=== PATIENT | male | born 1935 | race Caucasian/White ===

== ENCOUNTER 2018-01-25 08:24 | Day surgery (SDC) | payer MEDICARE ==
[~2018-01-25 08:24] MED LIST: CEFAZOLIN 2 Gram 2 GM/50 ML BAG IVPB ONE; CELECOXIB 100 MG CAPSULE PO ONE; FAMOTIDINE 20MG TABLET PO ONE; MECLIZINE 25 MG TABLET PO ONE; METOCLOPRAMIDE 10 MG TABLET PO ONE; VANCOMYCIN HCL 1,000 MG in DEXTROSE 5 % IN WATER 250 ML IVPB ONE
[2018-01-25] MEDS ORDERED: ROPIVACAINE HCL (NAROPIN) /PF 5MG/ML 20ML VIAL IV ONE (08:25)
[2018-01-25] MEDS ORDERED: TRANEXAMIC ACID 1,000 MG/10 ML ML IV ONE (08:25)
[2018-01-25] MEDS ORDERED: MIDAZOLAM HCL 2MG/2ML VIAL IV ONE (08:25)
[2018-01-25] MEDS ORDERED: EPHEDRINE SULFATE 50 MG/ML ML IV ONE (08:25)
[2018-01-25] MEDS ORDERED: PROPOFOL 10 MG/ML VIAL IV ONE (08:25)
[2018-01-25] MEDS ORDERED: DEXAMETHASONE 4 MG/ML 1ML VIAL IVP ONE (08:25)
[2018-01-25] MEDS ORDERED: *PACU ONLY* KETAMINE HCL 10 MG/ML (20ML) VIAL IV ONE (08:25)
[2018-01-25] MEDS ORDERED: BUPIVACAINE 0.5% W/EPI MPF 30 ML VIAL IVP ONE (08:25)
[2018-01-25 09:23] LABS: ABO GROUP A; ANTIBODY SCREEN NEGATIVE (NEGATIVE); RH TYPE POSITIVE
[2018-01-25] MEDS ORDERED: KETOROLAC 30 MG/ML VIAL IVP PRN ×2 (12:51)
[2018-01-25] MEDS ORDERED: ACETAMINOPHEN W/ CODEINE 300MG/60MG TABLET PO PRN ×2 (12:51)
[2018-01-25] MEDS ORDERED: TRAMADOL HCL 50 MG TABLET PO PRN (12:51)
[2018-01-25] MEDS ORDERED: AL HYDROX/MAG HYDROX 30ML UD PO PRN (12:51)
[2018-01-25] MEDS ORDERED: ACETAMINOPHEN 325 MG TAB PO PRN (12:51)
[2018-01-25] MEDS ORDERED: HYDROMORPHONE HCL 2 MG/ML VIAL IM PRN (12:51)
[2018-01-25] MEDS ORDERED: DIPHENHYDRAMINE HCL 25 MG CAPSULE PO PRN (12:51)
[2018-01-25] MEDS ORDERED: ZOLPIDEM TARTRATE 5 MG TABLET PO PRN (12:51)
[2018-01-25] MEDS ORDERED: ONDANSETRON HCL IV 4 MG/2 ML VIAL IVP PRN (12:51)
[2018-01-25] MEDS ORDERED: MAGNESIUM HYDROXIDE 30 ML UDC PO PRN (12:51)
[2018-01-25] MEDS ORDERED: BISACODYL 10 MG SUPP RC PRN (12:51)
[2018-01-25] MEDS ORDERED: NALOXONE 0.4 MG/1 ML VIAL IVP PRN (12:51)
[2018-01-25] MEDS ORDERED: HYDROCODONE/APAP 10/325 TABLET PO PRN (12:51)
--- NOTE | 2018-01-25 16:16 | Rehab Evaluation ---
Patient Information - Patient Information Diagnosis: OA R knee Ordered Treatment: PT Evaluate and Treat Status: Initial Evaluation Surgery: Yes (TKA R knee) Date of Surgery: 01/25/18 Past Medical/Surgical Hx: PAST MEDICAL/SURGICAL HISTORY Past Surgical History c scope cardiac stent 15 yrs ago tonsils right RTC PMH - Respiratory Hx Respiratory Disorders No PMH - Cardiovascular Hx Cardiovascular Disorders Yes Hx Abnormal EKG Yes Hx Cardiac Catheterization Yes Hx Heart Attack Yes Hx Hypertension Yes Hx Hypotension on meds good control Hx Coronary Artery Disease Yes Hx Coronary Stent Yes: 15 yrs ago no problems since Exercise Tolerance Fair Comment: d/t knee pains wobbly PMH - Neuro Hx Neurological Disorders No PMH - GI Hx Gastrointestinal Disorders Yes Hx Rectal Bleeding Yes: 1 year ago bleeding polyps PMH - Hx Genitourinary Disorders No PMH - Endocrine Hx Endocrine Disorders No PMH - Musculoskeletal Hx Musculoskeletal Disorders Yes Hx Arthritis Yes: knees Hx Gout Yes: hand 2 months ago PMH - Psych Hx Psychiatric Problems No PMH - Hematology/Oncology Hx Hematology/Oncology Yes Disorders Hx Blood Transfusion Reaction No Premorbid Status: Detail (The patient was independent with all mobility prior to surgery.) Social History: Detail (The patient lives in a mobile home with spouse with 3 steps at the enterance with 2 railings. The patient's bathroom is equipped with a tub/shower combination and a hand held shower and a standard toilet without grab bars. The patient was vended a walker , the patient has a cane and is to get a riser seat.) Precautions: [place], Fall, Other (WBAT R knee) - Time With Patient Total Time Spent With Patient (Min): 30 Treatment Procedures: Detail (Initial Evaluation) Subjective Information - Subjective Information Per Patient (The patient had no complaints of pain.) Objective Data - Mental Status Patient Orientation: Oriented x3 - Visual Perception Appears within normal limits for therapeutic activities - ROM Not within normal limits (R knee AROM is limited secondary to surgery. All other AROM was WNL.) - Strength/Tone Not within normal limits (The patient's R LE strength was not tested secondary to s/p surgery, however was functional ( Patient was able to complete a SLR). The patient's L LE strength was 4+ to 5/5.) - Bed Mobility Independent (The patient was independent with supine to and from sit transfer and scooting up in bed.) - Transfers Independent (The patient was independent with sit to and from stand transfer.) - Balance Balance Sitting: Good Balance Standing: Good - Sensation Intact - Gait Detail (The patient ambulated independently with 2 wheeled walker a distance of 150 feet WBAT on the R LE.) Therapy Assessment - Therapy Assessment Detail (The patient did well with transfers, bed mobility and ambulation. Feel patient will progress well with mobility.) Patient Education - Patient Education Teaching Topic: Exercise/Activity (The patient was instructed independent with TKA HEP : heel slides, ankle pumps, quad sets, hamstring sets, SLR,gluteal sets. ) Response: Return Demonstration Teaching Method: Handout Teaching Recipient: Patient Barriers To Learning: Age Related Problem List - Problem List Physical Therapy Problem List: Detail (1) Decreased R knee AROM and R LE strength as to be expected following surgery. 2) Non ambulatory on stairs.) Goals - Goals Physical Therapy Goals: The patient will ambulate on stairs with supervision for safety using proper technique. Prognosis - Prognosis Good Plan - Plan Physical Therapy Plan: PT 1 to 2 times for gait training on stairs.
[2018-01-25] MEDS: POTASSIUM CHLORIDE/D5-0.9%NACL 20 MEQ/1,000 ML BAG IV SCH (17:25)
[2018-01-25] MEDS ORDERED: CEFAZOLIN 2 Gram 2 GM/50 ML BAG IVPB SCH (19:00)
[2018-01-25] MEDS: DOCUSATE SODIUM 100 MG CAPSULE PO SCH (21:26)
[2018-01-25] MEDS: CEFAZOLIN 1 Gram 2 GM/100 ML BAG IVPB SCH ×2 (21:28→22:13)
[2018-01-25] MEDS ORDERED: ATENOLOL 25 MG TABLET PO SCH (22:00)
[2018-01-25] MEDS ORDERED: SIMVASTATIN 20 MG TABLET PO SCH (22:00)
[2018-01-25] MEDS ORDERED: ASPIRIN 81 MG TABEC PO SCH (22:00)
--- NOTE | 2018-01-25 22:04 | Operative Note ---
DATE: 01/25/2018 PREOPERATIVE DIAGNOSIS: END-STAGE ARTHROSIS OF THE RIGHT KNEE. POSTOPERATIVE DIAGNOSIS: END-STAGE ARTHROSIS OF THE RIGHT KNEE. PROCEDURE: Cemented right total knee arthroplasty using [employer]hew Cornelia II components, with a size 8 [place] Chrome femur, a size 8 stemmed tibial baseplate, a 9 mm lipped tibial insert, and a 35 mm all-plastic patella. STAFF SURGEON: HUMBLE MOREJON M.D. ANESTHESIA: SPINAL. PREPARATION: CHLORAPREP. INDIVIDUAL CONSIDERATIONS: NONE. PROCEDURE: The patient was taken to the Operating Room and placed supine on the operating table. He had the successful induction of a spinal anesthetic. His right lower extremity was then prepped and draped in the usual fashion. The patient had a midline approach to the knee. The limb was elevated and the tourniquet was inflated to 215 mmHg. Sharp dissection carried down through the skin and subcutaneous tissues. Small veins were coagulated with a Bovie. A medial arthrotomy was performed. The patella was everted and the knee was flexed. The patient's knee was basically destroyed with exposed bone, bone loss , and gouges in the medial side. The fat pad was resected, there was no ACL, provisional anterior meniscectomies were performed, and the capsule was released from the medial proximal tibia. The initial femoral commercial pilot hole was then made freehand. The intramedullary femoral cutting jig was placed. It was cut in 7.0 degrees of valgus and adjusted for rotation and secured with pins for a 10 mm resection. The initial transverse cut was then made. The skin guide was placed for the anterior and posterior commercial pilot holes. It was found that a size 8 would be appropriate. The anterior and posterior cuts followed by chamfer cuts were made, osteophytes were removed, and a size 8 trial was placed and found to fit well. The tibia was brought forward and the remainder of the meniscal remnants were removed with a Bovie. The extraarticular tibial cutting jig was placed. It was cut in neutral with a 3 degree AP slope. Care was taken to adjust for rotation and flexion using the extraarticular alignment guide and bony landmarks. It was set for a 9 mm resection, keyed off the high lateral side, and secured with pins. When cutting the tibia, care was taken to preserve the PCL insertion on the tibia. Large medial osteophytes were removed and I was able to still fit a size 8 tibial component. It was adjusted for rotation and secured with pins. With a 8 mm trial and the femoral trial, there was excellent motion and stability, ligamentous balance, rotation, and alignment were thought to be normal. The femoral commercial pilot holes were impacted and the triflange tibial stamp was impacted and these trial components were removed. The patient had a thick patella and roughly 9 mm of bone was removed with an oscillating saw and I could easily fit a 35 patella and the three commercial pilot holes were drilled. The tourniquet was let down briefly to get bleeders posteriorly and then placed back up again. The knee was then thoroughly irrigated out with pulsatile Betadine and saline to remove any visual or palpable debris. Bony surfaces were then dried. A size 8 stemmed tibial baseplate was cemented into place, followed by impaction of the 9 mm lipped tibial insert, followed by cementing in the size 8 [place] Chrome femur, followed by cementing in the 35 mm patella. Implant surfaces were compressed, excess cement was removed, and after the cement had set, there was excellent motion and stability, ligamentous balance, rotation and alignment and patellofemoral tracking were normal. No lateral release was required. The tourniquet was let down after irrigation. Hemostasis was obtained with the Bovie. The capsule was then closed with a running #2 Quill. The subcu was closed in layers with running 0 Quill, and the skin was closed with rashi. Prior to closure, the skin and subcutaneous tissue and periosteum were infiltrated with 30 mL of 0.5% Marcaine with Epinephrine. The patient did receive a gram of Tranexamic Acid preoperatively. I mixed a gram of Tranexamic Acid with 30 mL of saline and injected it into the knee through a sterile #18 gauge needle and a sterile [place] compressive ALFREDO- type dressing was applied. The patient tolerated the procedures well. Needle and sponge counts were correct. Estimated blood loss was minimal and he was taken back to Recovery in good condition. There were no complications. JOB NUMBER: [id number] MTDD
[2018-01-25] MEDS ORDERED: CEFAZOLIN 1 Gram 1 GM/50 ML BAG IVPB ONE (22:45)
[2018-01-25] MEDS ORDERED: CEFAZOLIN 1 Gram 1 GM/50 ML BAG IVPB SCH (22:45)
[2018-01-26] MEDS: HYDROCODONE/APAP 10/325 TABLET PO PRN ×2 (00:01→08:48)
[2018-01-26] MEDS: POTASSIUM CHLORIDE/D5-0.9%NACL 20 MEQ/1,000 ML BAG IV SCH ×2 (02:51→09:05)
[2018-01-26] MEDS: CEFAZOLIN 1 Gram 1 GM/50 ML BAG IVPB SCH ×5 (04:46→12:38)
[2018-01-26 06:49] LABS: HEMOGLOBIN 13.3 gm/dl (14.0-18.0)
[2018-01-26 07:29] LABS: BLOOD UREA NITROGEN 11 mg/dL (8-23); CREATININE 0.9 mg/dL (0.7-1.2); EST GLOMERULAR FILTRATION RATE > 60 mL/min; GLUCOSE,RANDOM 211 mg/dL (74-109)
--- NOTE | 2018-01-26 08:14 | Rehab Evaluation ---
Patient Information - Patient Information Diagnosis: DJD R knee Ordered Treatment: OT Evaluate and Treat Status: Initial Evaluation Surgery: Yes (TKA R knee) Date of Surgery: 01/25/18 Past Medical/Surgical Hx: PAST MEDICAL/SURGICAL HISTORY Past Surgical History c scope cardiac stent 15 yrs ago tonsils right RTC PMH - Respiratory Hx Respiratory Disorders No PMH - Cardiovascular Hx Cardiovascular Disorders Yes Hx Abnormal EKG Yes Hx Cardiac Catheterization Yes Hx Heart Attack Yes Hx Hypertension Yes Hx Hypotension on meds good control Hx Coronary Artery Disease Yes Hx Coronary Stent Yes: 15 yrs ago no problems since Exercise Tolerance Fair Comment: d/t knee pains wobbly PMH - Neuro Hx Neurological Disorders No PMH - GI Hx Gastrointestinal Disorders Yes Hx Rectal Bleeding Yes: 1 year ago bleeding polyps PMH - Hx Genitourinary Disorders No PMH - Endocrine Hx Endocrine Disorders No PMH - Musculoskeletal Hx Musculoskeletal Disorders Yes Hx Arthritis Yes: knees Hx Gout Yes: hand 2 months ago PMH - Psych Hx Psychiatric Problems No PMH - Hematology/Oncology Hx Hematology/Oncology Yes Disorders Hx Blood Transfusion Reaction No Premorbid Status: Detail (The patient was independent with all mobility prior to surgery.) Social History: Detail (The patient lives in a mobile home with spouse with 3 steps at the entrance with 2 railings. The patient's bathroom is equipped with a tub/shower combination and a hand held shower and a standard toilet with toilet riser, no grab bars. The patient was vended a walker , the patient has a cane. He is responsible for meal prep and laundry and his is responsible for home mgmt. His daughter will be staying with him for as long as he needed to assist.) Precautions: [place], Fall, Other (WBAT R knee) - Time With Patient Total Time Spent With Patient (Min): 30 Treatment Procedures: Detail (OT eval low complexity) Subjective Information - Subjective Information Per Patient Objective Data - Pain Pain Present: No (Pt reports no pain currently and 1-2/10 with ambulation.) - Mental Status Patient Orientation: Oriented x3 - Visual Perception Appears within normal limits for therapeutic activities - ROM Not within normal limits (Pt reports right shoulder ROM is impaired but functional due to old rotator cuff injury. Remaining UE AROM WNL.) - Strength/Tone Within normal limits (Bryan UE strength WNL within AROM limitations.) - Coordination Appears within normal limits for therapeutic activities - Bed Mobility Independent (Ind with supine to sit.) - Transfers Independent (Ind with sit to stand from EOB.) - Balance Balance Sitting: Good Balance Standing: Good - Sensation Intact - Gait Detail (Pt ambulated to bathroom with 2 wheeled walker Indly.) - ADL's/IADL's Detail (Pt educated and able to demonstrate learning of modified LE dressing techniques. Pt was Ind with doffing briefs and slippers and donning underwear, shorts and tennis shoes. He was Ind with toileting in standing. Reviewed showering and kitchen safety and modifications, pt able to verbalize understanding.) Therapy Assessment - Therapy Assessment Detail (Pt is safe and Ind with modified LE dressing techniques.) Problem List - Problem List Physical Therapy Problem List: Detail (1) Decreased R knee AROM and R LE strength as to be expected following surgery. 2) Non ambulatory on stairs.) Occupational Therapy Problem List: Detail (No current OT problems identified.) Goals - Goals Physical Therapy Goals: The patient will ambulate on stairs with supervision for safety using proper technique. Occupational Therapy Goals: No IP OT goals identified at this time. Prognosis - Prognosis Good Plan - Plan Physical Therapy Plan: PT 1 to 2 times for gait training on stairs. Occupational Therapy Plan: No further IP OT recommended at this time. Thank you for this referral.
[2018-01-26] MEDS: RIVAROXABAN 10 MG TABLET PO SCH ×2 (08:48→09:06)
[2018-01-26] MEDS: DOCUSATE SODIUM 100 MG CAPSULE PO SCH ×2 (08:48→09:06)
[2018-01-26] MEDS: FERROUS SULFATE 325 MG TAB PO SCH ×2 (08:48→09:06)
--- NOTE | 2018-01-26 10:06 | Physical Therapy Tx Note ---
Physical Therapy Tx Note - Treatment Note Tolerated: Good Total Time Spent With Patient: 15 Physical Therapy Tx Note: Detail (The patient was up in chair when PT arrived. The patient ambulated with wheeled walker independently to bathroom. The patient ambulated 100 feet x 1 with front wheeled walker WBAT on the R LE independently. The patient ambulated on 3 steps with use of one railing and standard cane using proper technique. The patient has met all inpatient PT goals and is to continue with Home PT.) Physical Therapy Problem List: Detail (1) Decreased R knee AROM and R LE strength as to be expected following surgery. 2) Non ambulatory on stairs.) Physical Therapy Goals: The patient will ambulate on stairs with supervision for safety using proper technique. Prognosis: Good Physical Therapy Plan: The patient is discharged from inpatient PT and is to continue with Home PT.
[2018-01-26] MEDS ORDERED: CEFAZOLIN 1G VIAL IVP ONE (12:37)
== END 2018-01-26 14:20 | disposition home health service (06) ==
LOC: MEDSURG 08:24 → SUR 08:24 → MEDSURG 13:23 → SUR 01-26 14:20
PROVIDERS: ATTEND Orthopaedic Surgery
DX: M17.11 Unilateral primary osteoarthritis, right knee (principal); I10 Essential (primary) hypertension; E78.00 Pure hypercholesterolemia, unspecified; I25.2 Old myocardial infarction
CPT/HCPCS: 80048; 85014; 85018; 86850; 86900; 86901; 97530; C1776; J0690; J3480; J7060

== ENCOUNTER 2018-04-12 08:41 | Day surgery (SDC) | payer MEDICARE ==
[2018-04-12] MEDS ORDERED: SEVOFLURANE 250 ML INH ONE (08:42)
[2018-04-12] MEDS ORDERED: PROPOFOL 10 MG/ML VIAL IV ONE (08:42)
[2018-04-12] MEDS ORDERED: ROPIVACAINE HCL (NAROPIN) /PF 5MG/ML 20ML VIAL IV ONE (08:42)
[2018-04-12] MEDS ORDERED: BUPIVACAINE 0.5% W/EPI MPF 30 ML VIAL IVP ONE (08:42)
[2018-04-12] MEDS ORDERED: 0.9 % SODIUM CHLORIDE 10 ML VIAL IVP ONE (08:42)
[2018-04-12] MEDS ORDERED: MIDAZOLAM HCL 2MG/2ML VIAL IV ONE (08:42)
[2018-04-12] MEDS ORDERED: TRANEXAMIC ACID 1,000 MG/10 ML ML IV ONE ×2 (08:42)
[2018-04-12] MEDS ORDERED: EPHEDRINE SULFATE 50 MG/ML ML IV ONE (08:42)
[2018-04-12] MEDS ORDERED: LIDOCAINE 2% MDV (20MG/ML) 20ML VIAL IV ONE (08:42)
[2018-04-12] MEDS ORDERED: DEXAMETHASONE 4 MG/ML 1ML VIAL IVP ONE (08:42)
[2018-04-12 09:40] LABS: ABO GROUP A; ANTIBODY SCREEN NEGATIVE (NEGATIVE); RH TYPE POSITIVE
[2018-04-12] MEDS ORDERED: AL HYDROX/MAG HYDROX 30ML UD PO PRN (12:48)
[2018-04-12] MEDS ORDERED: TRAMADOL HCL 50 MG TABLET PO PRN (12:48)
[2018-04-12] MEDS ORDERED: ONDANSETRON HCL IV 4 MG/2 ML VIAL IVP PRN (12:48)
[2018-04-12] MEDS ORDERED: HYDROCODONE/APAP 10/325 TABLET PO PRN (12:48)
[2018-04-12] MEDS ORDERED: NALOXONE 0.4 MG/1 ML VIAL IVP PRN (12:48)
[2018-04-12] MEDS ORDERED: DIPHENHYDRAMINE HCL 25 MG CAPSULE PO PRN (12:48)
[2018-04-12] MEDS ORDERED: MAGNESIUM HYDROXIDE 30 ML UDC PO PRN (12:48)
[2018-04-12] MEDS ORDERED: BISACODYL 10 MG SUPP RC PRN (12:48)
[2018-04-12] MEDS ORDERED: ZOLPIDEM TARTRATE 5 MG TABLET PO PRN (12:48)
[2018-04-12] MEDS ORDERED: KETOROLAC 30 MG/ML VIAL IVP PRN ×2 (12:48)
[2018-04-12] MEDS ORDERED: ACETAMINOPHEN W/ CODEINE 300MG/60MG TABLET PO PRN ×2 (12:48)
[2018-04-12] MEDS ORDERED: ACETAMINOPHEN 325 MG TAB PO PRN (12:48)
[2018-04-12] MEDS ORDERED: HYDROMORPHONE HCL 2 MG/ML VIAL IM PRN (12:48)
[2018-04-12] MEDS: POTASSIUM CHLORIDE/D5-0.9%NACL 20 MEQ/1,000 ML BAG IV SCH ×2 (15:14→18:26)
--- NOTE | 2018-04-12 16:47 | Rehab Evaluation ---
Patient Information - Patient Information Diagnosis: L knee OA Ordered Treatment: PT Evaluate and Treat Status: Initial Evaluation Surgery: Yes (L TKA) Date of Surgery: 04/12/18 Past Medical/Surgical Hx: PAST MEDICAL/SURGICAL HISTORY Past Surgical History RTKA 01-25-18 c scope cardiac stent 15 yrs ago tonsils right RTC PMH - Respiratory Hx Respiratory Disorders No PMH - Cardiovascular Hx Cardiovascular Disorders Yes Hx Abnormal EKG Yes Hx Cardiac Catheterization Yes Hx Heart Attack Yes Hx Hypertension Yes Hx Hypotension on meds good control Hx Coronary Artery Disease Yes Hx Coronary Stent Yes: 15 yrs ago no problems since Exercise Tolerance Fair Comment: d/t knee pains wobbly PMH - Neuro Hx Neurological Disorders No PMH - GI Hx Gastrointestinal Disorders Yes Hx Rectal Bleeding Yes: 1 year ago bleeding polyps PMH - Hx Genitourinary Disorders No PMH - Endocrine Hx Endocrine Disorders No PMH - Musculoskeletal Hx Musculoskeletal Disorders Yes Hx Arthritis Yes: knees Hx Gout Yes: hand 4 months ago PMH - Psych Hx Psychiatric Problems No PMH - Hematology/Oncology Hx Hematology/Oncology Yes Disorders Hx Blood Transfusion Reaction No Premorbid Status: Detail (The patient was independent with mobility prior to surgery.) Social History: Detail (The patient lives in a mobile home with with 3 steps at the enterance and 2 railings. The patient's bathroom is equipped with a tub/shower combination, tub seat and a riser seat. The patient has a walker with wheels and a standard cane.) Precautions: [place], Fall, Other (WBAT L LE) - Time With Patient Total Time Spent With Patient (Min): 30 Treatment Procedures: Detail (Initial Evaluation, gait training) Subjective Information - Subjective Information Per Patient (The patient had no complaints of pain but complained of L LE feeling funny when ambulating.) Objective Data - Mental Status Patient Orientation: Oriented x3 - Visual Perception Appears within normal limits for therapeutic activities - ROM Not within normal limits (The patient's L knee AROM is limited as to be expected following surgery. All other LE AROM is WNL.) - Strength/Tone Not within normal limits (The patient's L LE strength was not tested s/p surgery however it is functional ie: patient is able to complete a SLR. The patient's R LE strength is WFL.) - Bed Mobility Needs Assist (Minimal PA with supine to sit, independent sit to supine) - Transfers Independent (Independent sit to and from stand transfer) - Balance Balance Sitting: Good Balance Standing: Good - Gait Detail (The patient ambulated 30 feet x 1 with CG of 1 for safety due to patient reporting L LE felt funny.) Therapy Assessment - Therapy Assessment Detail (The patient was independent with transfers and required min assist with bed mobility. Feel patient will progress with mobility.) Problem List - Problem List Physical Therapy Problem List: Detail (Decreased L knee AROM and LE strength as to be expected following surgery.) Goals - Goals Physical Therapy Goals: 1) The patient will ambulate independently 100 feet x 1 WBAT on the L LE. 2) The patient will ambulate on stairs with supervision for safety using proper technique 3) The patient will be independent with bed mobility 4) The patient will be independent with TKA HEP Prognosis - Prognosis Good Plan - Plan Physical Therapy Plan: PT for 1-2 sessions for gait training on levels and stairs, bed mobility and instruction in HEP.
[2018-04-12] MEDS: CEFAZOLIN 2 Gram 2 GM/50 ML BAG IVPB SCH (18:25)
[2018-04-12] MEDS ORDERED: PATIENT OWN MED: ATENOLOL 25 MG PO SCH (22:00)
[2018-04-12] MEDS ORDERED: PATIENT OWN MED: SIMVASTATIN 20 MG PO SCH (22:00)
[2018-04-12] MEDS ORDERED: PATIENT OWN MED: ASPIRIN 81 MG PO SCH (22:00)
[2018-04-12] MEDS ORDERED: TRICOR 145 MG PO SCH (22:00)
[2018-04-12] MEDS: DOCUSATE SODIUM 100 MG CAPSULE PO SCH (22:03)
[2018-04-13] MEDS: POTASSIUM CHLORIDE/D5-0.9%NACL 20 MEQ/1,000 ML BAG IV SCH ×2 (01:45→05:32)
[2018-04-13] MEDS: CEFAZOLIN 2 Gram 2 GM/50 ML BAG IVPB SCH ×2 (01:45→10:00)
[2018-04-13] MEDS: HYDROCODONE/APAP 10/325 TABLET PO PRN ×2 (05:27→11:52)
[2018-04-13] MEDS: DOCUSATE SODIUM 100 MG CAPSULE PO SCH (09:21)
[2018-04-13] MEDS ORDERED: RIVAROXABAN 10 MG TABLET PO SCH (10:00)
[2018-04-13] MEDS ORDERED: FERROUS SULFATE 325 MG TAB PO SCH (10:00)
--- NOTE | 2018-04-13 10:12 | Physical Therapy Tx Note ---
Physical Therapy Tx Note - Treatment Note Tolerated: Good Total Time Spent With Patient: 20 Physical Therapy Tx Note: Detail (The patient was in bathroom when PT arrived . The patient was independent with bed mobility. The patient ambulated independently with front wheeled walker a distance of 100 feet x 1, WBAT on the L LE. The patient ambulated on 3 steps with use of folded walker and one railing using proper technique with supervision for safety. The patient completed TKA exercises including: ankle pumps, quad sets, hamstring sets, gluteal sets, heel slides and SLR. The patient has met all inpatient PT goals and is discharged from inpatient PT.) Physical Therapy Problem List: Detail (Decreased L knee AROM and LE strength as to be expected following surgery.) Physical Therapy Goals: GOALS MET: 1) The patient will ambulate independently 100 feet x 1 WBAT on the L LE. 2) The patient will ambulate on stairs with supervision for safety using proper technique 3) The patient will be independent with bed mobility 4) The patient will be independent with TKA HEP Physical Therapy Plan: The patient is discharged from inpatient PT and is to receive Home PT.
--- NOTE | 2018-04-13 11:50 | Operative Note ---
DATE OF SERVICE: 04/12/2018. DATE OF SURGERY: 04/12/2018. PREOPERATIVE DIAGNOSIS: End-stage arthrosis of the left knee. POSTOPERATIVE DIAGNOSIS: End-stage arthrosis of the left knee. OPERATION: Cemented left total knee arthroplasty using Love [employer] Nephew components, with a size 8 cobalt chrome femur, a size 8 stemmed tibial baseplate, an 11 mm lipped tibial insert, and a 35 mm all plastic patella. Staff Surgeon: Derek Vanegas MD. Anesthesia: Spinal. PREPARATION: ChloraPrep. INDIVIDUAL CONSIDERATIONS: None. PROCEDURE: Patient was taken to the operating room, placed supine on the operating table. He had successful induction of a spinal anesthetic. His left lower extremity was prepped and draped in the usual fashion. Patient had a midline approach to the knee. Limb was elevated. Tourniquet was inflated to 250 mmHg. Sharp dissection carried down through skin and subcutaneous tissue. Small veins were coagulated with a Bovie. A medial arthrostomy was performed, the patella was everted, and knee was flexed. Patient had exposed bone throughout with bone loss, and he was an absolute mess. Fat pad was resected, ACL was sacrificed, provisional anterior meniscectomies were performed, and the capsule was released from the medial proximal tibia. The initial femoral banquet pilot hole was then made freehand. The intramedullary femoral cutting jig was placed. It was cut in 7.0 degrees of valgus and adjusted for rotation and secured with pins for a 10 mm resection. The initial transverse cut was then made. Skid guide was placed for the anterior and posterior banquet pilot holes. It was found that a size 8 would be appropriate. The anterior and posterior cuts were made, osteophytes were removed, and a size 8 trial was placed and found to fit well. Tibia was brought forward, and remainder of the meniscal remnants were removed with a Bovie. The extraarticular tibial cutting jig was placed. It was cut in neutral with a 3 degree AP slope. Care was taken to adjust for rotation and flexion using the extraarticular alignment guide and bony landmarks. It was set for a 9 mm resection keyed off the high lateral side, secured with pins. When cutting the tibia, care was taken to preserve the PCL insertion on the tibia. Large osteophytes were removed, and after that, I was able to fit a size 8 baseplate trial. It was adjusted for rotation and secured with pins. With an 11 mm spacer, there were excellent motion and stability. Ligamentous balance, rotational alignment were thought to be normal. These trial components were removed. Tourniquet was let down briefly to get bleeders posteriorly, then placed back up again. Patella was cut freehand. He had a very thick patella. Roughly 9 mm of bone was then removed freehand. I was easily able to fit a 35 patella, and the 3 banquet pilot holes were drilled. The knee was then thoroughly irrigated out with pulsatile Betadine and saline to remove any visual or palpable debris. Bony surfaces were then dried. A size 8 stemmed tibial baseplate was then cemented into place, followed by impaction of the 11 mm lipped tibial insert, followed by cementing in the size 8 cobalt chrome femur, followed by cementing of the 35 mm patella. Implant surfaces were compressed, excess cement was removed, and after the cement had set, there were excellent motion and stability. Ligamentous balance, rotational alignment, and patellofemoral tracking were normal. No lateral release was required. The tourniquet was let down. Hemostasis was obtained with a Bovie after irrigation. The capsule was then closed with a running #2 Quill. Prior to this, I had infiltrated the skin, subcu, and periosteum with 30 mL of 0.5% Marcaine with epinephrine prior. The subcu was then closed with running 0 Quill in layers. Skin was closed with rashi. Patient did receive 1 g of tranexamic acid preoperatively. I mixed 1 g of tranexamic acid with 30 mL of saline and injected that into the knee through a sterile 18 gauge needle, and a sterile, bulky, compressive ALFREDO-type dressing was applied. Patient tolerated the procedure well. Needle and sponge counts were correct. Estimated blood loss was minimal. He was taken back to recovery in good condition. There were no complications. ANGELIA
--- NOTE | 2018-04-13 11:50 | Rehab Evaluation ---
Patient Information - Patient Information Diagnosis: L knee OA Ordered Treatment: OT Evaluate and Treat Status: Initial Evaluation Surgery: Yes (L TKA) Date of Surgery: 04/12/18 Past Medical/Surgical Hx: PAST MEDICAL/SURGICAL HISTORY Past Surgical History RTKA 01-25-18 c scope cardiac stent 15 yrs ago tonsils right RTC PMH - Respiratory Hx Respiratory Disorders No PMH - Cardiovascular Hx Cardiovascular Disorders Yes Hx Abnormal EKG Yes Hx Cardiac Catheterization Yes Hx Heart Attack Yes Hx Hypertension Yes Hx Hypotension on meds good control Hx Coronary Artery Disease Yes Hx Coronary Stent Yes: 15 yrs ago no problems since Exercise Tolerance Fair Comment: d/t knee pains wobbly PMH - Neuro Hx Neurological Disorders No PMH - GI Hx Gastrointestinal Disorders Yes Hx Rectal Bleeding Yes: 1 year ago bleeding polyps PMH - Hx Genitourinary Disorders No PMH - Endocrine Hx Endocrine Disorders No PMH - Musculoskeletal Hx Musculoskeletal Disorders Yes Hx Arthritis Yes: knees Hx Gout Yes: hand 4 months ago PMH - Psych Hx Psychiatric Problems No PMH - Hematology/Oncology Hx Hematology/Oncology Yes Disorders Hx Blood Transfusion Reaction No Premorbid Status: Detail (The patient was independent with mobility and all ADLs prior to surgery.) Social History: Detail (The patient lives in a mobile home with with 3 steps at the enterance and 2 railings. The patient's bathroom is equipped with a tub/shower combination, tub seat and a riser seat. The patient has a walker with wheels and a standard cane. Spouse is available to help and daughter will be staying with patient from [place] for the next month to help as needed.) Precautions: [place], Fall, Other (WBAT L LE) - Time With Patient Total Time Spent With Patient (Min): 30 Treatment Procedures: Detail (Eval LOW) Subjective Information - Subjective Information Per Patient (Patient feels ready for discharge home and wants to go home as soon as possible.) Objective Data - Pain Pain Present: Yes Pain Intensity: 3 Pain Scale Used: Numeric (1 - 10) (Patient at 0/10 pain when laying in bed but moved up to 3/10 with ADLs.) - Mental Status Patient Orientation: Oriented x3 - Visual Perception Appears within normal limits for therapeutic activities - ROM Within normal limits (BUE's) - Strength/Tone Within normal limits (BUE's) - Coordination Appears within normal limits for therapeutic activities - Bed Mobility Independent (Supine>SS EOB) - Transfers Independent (sit<>stand w/ 2WW) - Balance Balance Sitting: Good - Gait Detail (Patient ambulated from EOB to bathroom w/ 2WW indpendently) - ADL's/IADL's Detail (Patient completed sponge bathing seated in front of sink independently. Patient also completed oral hygiene and face washing independently. He was able to verbalize and demonstrate modified drsg technique and independence with LB drsg. Patient did require assistance with L sock doff/don and L shoe don but will have 24 hour support and does not feel any equipment is needed at this time.) Therapy Assessment - Therapy Assessment Detail (Other than requiring assistance with L sock and shoe don/doff at this time, patient is independent with LB and UB dressing. He will have 24 hour support to assist with shoes and socks until ROM improves. Patient does not require further inpatient OT at this time.) Patient Education - Patient Education Teaching Topic: Other (modified dressing technique) Response: Return Demonstration, Verbalize Understanding Teaching Recipient: Patient, Family (daughter), Significant Other Barriers To Learning: None Problem List - Problem List Physical Therapy Problem List: Detail (Decreased L knee AROM and LE strength as to be expected following surgery.) Goals - Goals Physical Therapy Goals: GOALS MET: 1) The patient will ambulate independently 100 feet x 1 WBAT on the L LE. 2) The patient will ambulate on stairs with supervision for safety using proper technique 3) The patient will be independent with bed mobility 4) The patient will be independent with TKA HEP Prognosis - Prognosis Good Plan - Plan Physical Therapy Plan: The patient is discharged from inpatient PT and is to receive Home PT. Occupational Therapy Plan: Patient does not require further inpatient OT at this time and will be discharged.
== END 2018-04-13 13:05 | disposition home or self-care (01) ==
LOC: SUR 08:41 → MEDSURG 13:44 → SUR 04-13 13:05
PROVIDERS: ATTEND Orthopaedic Surgery
DX: M17.12 Unilateral primary osteoarthritis, left knee (principal); I10 Essential (primary) hypertension; E78.00 Pure hypercholesterolemia, unspecified; I25.10 Atherosclerotic heart disease of native coronary artery without angina pectoris; Z95.5 Presence of coronary angioplasty implant and graft
CPT/HCPCS: 27447; 01402; 64447; 86900; 86901; 86850; J3370; J0690 ×2; J3490 ×2; J2795; G8978; G8979 ×2; G8980; G8987; G8988; G8989; 36569; 97530; C1776; J3480; J7060

== ENCOUNTER 2018-11-15 13:31 | Emergency (ER) | payer MEDICARE ==
--- NOTE | 2018-11-15 13:38 | Emergency Department Record ---
History of Present Illness - General Stated complaint: BLOOD IN STOOL Time Seen by Provider: 11/15/18 13:33 Source: Patient, Family Mode of Arrival: Ambulatory Limitations: No limitations - History of Present Illness Initial comments: 83 yo male presents with a concern about blood in his stool. He has noted the blood with bowel movements of three occasions starting Wednesday. No pain. No fever. No vomiting. No current blood thinners. He states about 2 years ago in [place] he had a bleed that required transfusion of two units of PRBC and a colonoscopy. He is unsure but he thinks a site was cauterized then. He has not had follow up and he does not have a PCP. He is on Aspirin MD complaint: Blood on toilet paper -: Days(s) Quality: Painless Consistency: Intermittent Improves with: None Worsens with: Bowel movement Context: History of GI bleed Associated Symptoms: Denies other symptoms - Related Data Home Medications Medication Instructions Recorded Confirmed Last Taken Aspirin [Aspir-Low] 81 mg PO DAILY 11/15/18 11/15/18 Unknown Atenolol [Tenormin] 25 mg PO DAILY 11/15/18 11/15/18 Unknown Fenofibrate Nanocrystallized 145 mg PO DAILY 11/15/18 11/15/18 Unknown [Fenofibrate] Simvastatin 20 mg PO DAILY 11/15/18 11/15/18 Unknown Allergies Allergy/AdvReac Type Severity Reaction Status Date / Time No Known Drug Allergies Allergy Verified 01/14/18 11:50 Review of Systems Constitutional: Denies: Chills, Fever, Malaise, Weakness Eyes: Denies: Eye discharge ENT: Denies: Congestion, Throat pain Respiratory: Denies: Cough, Dyspnea, Hemoptysis, Wheezes Cardiovascular: Denies: Chest pain, Palpitations, Syncope Endocrine: Denies: Fatigue, Polydipsia, Polyuria Gastrointestinal: Reports: Hematochezia. Denies: Hematemesis Genitourinary: Denies: Dysuria, Frequency, Hematuria Musculoskeletal: Denies: Arthralgia, Back pain, Myalgia Skin: Denies: Bruising, Change in color, Rash Neurological: Denies: Headache Psychiatric: Denies: Anxiety Hematological/Lymphatic: Denies: Easy bleeding, Easy bruising Past Medical History - SOCIAL HISTORY Smoking Status: Never smoker - RESPIRATORY Hx Respiratory Disorders: No - CARDIOVASCULAR Hx Cardio Disorders: Yes Hx Abnormal EKG: Yes Hx Cardiac Cath: Yes Hx Heart Attack: Yes Hx Hypertension: Yes Hx Hypotension: (on meds good control) Hx Coronary Artery Disease: Yes Hx Coronary Stent: Yes (15 yrs ago no problems since) Comment:: d/t knee pains wobbly - NEURO Hx Neuro Disorders: No - GI Hx GI Disorders: Yes Hx Rectal Bleeding: Yes (1 year ago bleeding polyps) Hx of Polyps: Yes - Hx Genitourinary Disorders: No - ENDOCRINE Hx Endocrine Disorders: No - MUSCULOSKELETAL Hx Musculoskeletal Disorders: Yes Hx Arthritis: Yes (knees) Hx Gout: Yes (hand 4 months ago) - PSYCH Hx Psych Problems: No - HEMATOLOGY/ONCOLOGY Hx Hematology/Oncology Disorders: Yes Hx Blood Transfusions: Yes (1 year ago) Hx Blood Transfusion Reaction: No Family Medical History Hx Alcohol Use: Father Physical Exam - General General Appearance: Alert, Oriented x3, Cooperative, No acute distress Limitations: No limitations - Head Head exam: Atraumatic, Normal inspection - Eye Eye exam: Normal appearance. negative: Conjunctival injection - ENT ENT exam: Normal exam Ear exam: Normal external inspection Nasal Exam: Normal inspection Mouth exam: Normal external inspection - Neck Neck exam: Normal inspection, Full ROM - Respiratory Respiratory exam: Normal lung sounds bilaterally. negative: Respiratory distress - Cardiovascular Cardiovascular Exam: Regular rate, Normal rhythm, Normal heart sounds - GI/Abdominal GI/Abdominal exam: Soft. negative: Distended, Guarding, Tenderness - Rectal Rectal exam: Heme (+) stool, Other (brownish stool, slight streak of blood, heme positive. No definite hemorrhoids or other causes). negative: Black stool - exam: Deferred - Extremities Extremities exam: Normal inspection. negative: Tenderness - Back Back exam: Denies: CVA tenderness (R), CVA tenderness (L) - Neurological Neurological exam: Alert, Oriented X3 - Psychiatric Psychiatric exam: Normal affect, Normal mood - Skin Skin exam: Dry, Intact, Normal color, Warm Course - Reevaluation(s) Reevaluation #1: 11/15/18 14:06 The CBC was reviewed Hgb is 14. 11/15/18 14:15 The CMP is negative 11/15/18 14:23 The results were discussed with the patient There are not GI doctors for two week at [facility] 11/15/18 14:38 The results were discussed with the patient, and daughter. His count is normal at 14. His blood on examination was very minimal small streak with normal brown stool. However, given his age, I did offer to transfer him for observation in [place] where there may be GI services. He does not want to do this at this time. We spoke at length about returning or going directly to [place] if the bleeding returns. (There are no GI services for 2 weeks in ER). Medical Decision Making - Lab Data Result diagrams: 11/15/18 13:45 11/15/18 13:45 Disposition Disposition: Discharge Clinical Impression: Blood in the stool Disposition: Home, Self-Care Condition: (1) Good Instructions: Rectal Bleeding (ED) Additional Instructions: Return or be seen immediately if the bleeding returns or increases Call your doctor in [place] for a GI referral as soon as possible Review this ER visit and the tests performed with your family doctor Return to the ER for a recheck if worse, any new concerns or questions Take the prescriptions provided as directed Forms: Patient Portal Access Time of Disposition: 14:45 Quality - Quality Measures Quality Measures: N/A - Blood Pressure Screening Does Patient Have Any of the Following: No Blood Pressure Classification: Normal BP Reading Systolic Measurement: 114 Diastolic Measurement: 71 Screening for High Blood Pressure: < Normal BP, F/U Not Required > [G8783]
[2018-11-15 13:52] LABS: HEMATOCRIT 41.8 % (42.0-52.0); MEAN CELL VOLUME 98.8 fl (81-97); MEAN CORPUSCULAR HGB CONC 33.5 g/dl (32-36); MEAN PLATELET VOLUME 11.1 fl (7.4-10.4); PLATELET COUNT 207 K/uL (130-400); RED BLOOD COUNT 4.23 M/uL (4.40-5.70); RED CELL DISTRIBUTION WIDTH 16.8 % (11.5-14.5); WHITE BLOOD COUNT W/O DIFF 6.1 K/uL (4.2-12.2)
[2018-11-15 14:02] LABS: BLOOD UREA NITROGEN 20 mg/dL (8-23); CREATININE 0.9 mg/dL (0.7-1.2); EST GLOMERULAR FILTRATION RATE > 60 mL/min; TOTAL PROTEIN 7.4 g/dL (6.6-8.7)
[2018-11-15 14:04] LABS: GLUCOSE,RANDOM 108 mg/dL (74-109)
[2018-11-15 14:05] LABS: INR 1.1; PARTIAL THROMBOPLASTIN TIME 29.8 SECONDS (24.5-39.1); PROTHROMBIN TIME (PATIENT) 10.7 SECONDS (9.5-12.1)
[2018-11-15 14:07] LABS: ALB/GLOB RATIO 1.5 (1.1-1.8); ALBUMIN 4.4 g/dL (4.0-5.0); ALKALINE PHOSPHATASE 50 U/L (40-129); ALT/SGPT 14 U/L (<41); AST/SGOT 28 U/L (10.0-50.0)
[2018-11-15 14:18] LABS: ABSOLUTE NEUTROPHIL COUNT 3.97
== END 2018-11-15 14:59 | disposition home or self-care (01) ==
LOC: ER 13:31
DX: K92.1 Melena (principal); I10 Essential (primary) hypertension; I25.2 Old myocardial infarction
CPT/HCPCS: 80053; 85027; 85610; 85730; 99283; 99284